=== PATIENT | male | born 1965 | race Caucasian/White ===

== ENCOUNTER 2018-09-15 15:13 | Emergency (ER) | payer MEDICAID ==
--- NOTE | 2018-09-15 17:46 | EDM.PDOCBH ---
ED HPI GENERAL MEDICAL PROBLEM - General Chief Complaint: Drug or Alcohol Abuse Stated Complaint: EVAL Time Seen by Provider: 09/15/18 17:35 Source of Information: Reports: Patient, Family History Limitations: Reports: Intoxication - History of Present Illness INITIAL COMMENTS - FREE TEXT/NARRATIVE: 52-year-old male with chronic alcoholism, just got out of the share house 2 weeks ago and is now drinking. They're requesting to go to [facility] for detox and treatment. He has no other significant health problems. Onset: Unknown/Unsure Associated Symptoms: Reports: No Other Symptoms denies Pain Score (Numeric/FACES): 0 - Related Data Allergies Allergy/AdvReac Type Severity Reaction Status Date / Time lorazepam Allergy Agitation Verified 09/15/18 16:23 Home Meds: Home Meds FLUoxetine HCl [Fluoxetine HCl] 20 mg PO DAILY 09/15/18 [History] Folic Acid 1 mg PO DAILY 09/15/18 [History] Losartan Potassium 25 mg PO DAILY 09/15/18 [History] Metoprolol Tartrate 50 mg PO DAILY 09/15/18 [History] Thiamine [Vitamin B-1] 100 mg PO DAILY 09/15/18 [History] Vit B12/Lmefolate Ca/Vit B6/B2 [Cerefolin] 1 tab PO DAILY 09/15/18 [History] amLODIPine Besylate [Amlodipine Besylate] 5 mg PO DAILY 09/15/18 [History] hydrOXYzine HCl [Atarax] 25 mg PO Q6H PRN 09/15/18 [History] Past Medical History Cardiovascular History: Reports: Hypertension Psychiatric History: Reports: Anxiety, Depression Hematologic History: Reports: Other (See Below) Other Hematologic History: states he has needed thiamine IV with past detox - Past Surgical History Cardiovascular Surgical History: Reports: None Social & Family History - Tobacco Use Smoking Status *Q: Never Smoker - Alcohol Use Days Per Week of Alcohol Use: 7 Number of Drinks Per Day: 5 Total Drinks Per Week: 35 - Recreational Drug Use Recreational Drug Use: No ED ROS GENERAL - Review of Systems Review Of Systems: See Below Constitutional: Denies: Fever, Chills Respiratory: Denies: Shortness of Breath GI/Abdominal: Denies: Nausea, Vomiting Neurological: Denies: Headache ED EXAM, BEHAVIORAL HEALTH - Physical Exam Exam: See Below Exam Limited By: Intoxication General Appearance: Other (Significantly intoxicated) Head: Atraumatic Respiratory/Chest: No Respiratory Distress Cardiovascular: Regular Rate, Rhythm Psychiatric: Depressed Mood, Flat Affect Skin Exam: Warm, Dry COURSE, BEHAVIORAL HEALTH COMP - Course Vital Signs: Last Vital Signs Temp 97.0 F 09/15/18 16:21 Pulse 89 09/15/18 16:21 Resp 16 09/15/18 16:21 BP 102/51 L 09/15/18 16:21 Pulse Ox 98 09/15/18 16:21 Orders, Labs, Meds: Laboratory Tests 09/15/18 09/15/18 09/15/18 Range/Units 17:44 17:53 17:53 WBC 7.7 (4.5-11.0) K/uL RBC 4.30 (4.30-5.90) M/uL Hgb 13.4 (12.0-15.0) g/dL Hct 39.9 L (40.0-54.0) % MCV 93 (80-98) fL MCH 31 (27-31) pg MCHC 34 (32-36) % Plt Count 256 (150-400) K/uL Neut % (Auto) 53 (36-66) % Lymph % (Auto) 31 (24-44) % [place] % (Auto) 14 H (2-6) % Eos % (Auto) 2 (2-4) % Baso % (Auto) 1 (0-1) % Sodium 143 (140-148) mmol/L Potassium 4.0 (3.6-5.2) mmol/L Chloride 108 (100-108) mmol/L Carbon Dioxide 23 (21-32) mmol/L Anion Gap 12.3 (5.0-14.0) mmol/L BUN 20 H (7-18) mg/dL Creatinine 1.3 (0.8-1.3) mg/dL Est Cr Clr Drug Dosing 58.48 mL/min Estimated GFR (MDRD) 58 L (>60) Glucose 134 H (74-106) mg/dL Calcium 9.0 (8.5-10.1) mg/dL Ethyl Alcohol 368 mg/dL Re-Assessment/Re-Exam: EtOH, CBC and BMP were obtained. EtOH is 0.368. CBC and BMP are reassuring. Patient will be transferred to [facility] by his significant other. Departure - Departure Time of Disposition: 19:21 Disposition: DC/Tfer to Other 70 Condition: Fair Clinical Impression: Alcohol abuse - Discharge Information Instructions: Alcohol Intoxication, [id number] Referrals: PCP,None [Primary Care Provider] - Forms: ED Department Discharge Care Plan Goals: Go directly to [facility] for admission, detox and treatment tomorrow morning. You have been medically cleared for detox and treatment as of September 15.
== END 2018-09-15 19:22 | disposition other institution (70) ==
LOC: JP.ED 15:13
DX: F10.20 Alcohol dependence, uncomplicated (principal); Y90.8 Blood alcohol level of 240 mg/100 ml or more; F41.9 Anxiety disorder, unspecified; F32.9 Major depressive disorder, single episode, unspecified; Z79.899 Other long term (current) drug therapy; Z88.8 Allergy status to other drugs, medicaments and biological substances
CPT/HCPCS: 36415; 80048; 85025; 99284; G0480